=== PATIENT | female | born 1955 | race Caucasian/White ===

== ENCOUNTER 2023-02-05 15:11 | Emergency (ER) | payer MEDICARE, OTHER | END 2023-02-05 16:06 | disposition home or self-care (01) | LOC: LL.ED 15:11 | DX: S42.021A Displaced fracture of shaft of right clavicle, initial encounter for closed fracture (principal); X58.XXXA Exposure to other specified factors, initial encounter | CPT/HCPCS: 73030-RT; 99283 ==

== ENCOUNTER 2024-06-25 14:37 | Emergency (ER) | payer MEDICARE, OTHER ==
[2024-06-25] MEDS: Diphtheria,Pertussis(Acell),Tetanus Vaccine 0.5 ML Syringe IM ONE (14:59)
[2024-06-25 15:14] LABS: BASOPHILS ABSOLUTE AUTO 0.02 K/uL (0.00-0.20); BASOPHILS PERCENT AUTO 0.2 % (0.0-2.0); EOSINOPHILS ABSOLUTE AUTO 0.03 K/uL (0.00-0.50); EOSINOPHILS PERCENT AUTO 0.3 % (0.0-5.0); HEMATOCRIT 40.8 % (34.0-46.0); HEMOGLOBIN 13.5 g/dL (11.7-15.5); LYMPHOCYTES ABSOLUTE AUTO 1.25 K/uL (0.50-3.50); LYMPHOCYTES PERCENT AUTO 11.4 % (10.0-50.0); MEAN CORPUSCULAR HGB CONC 33.1 g/dL (31.7-36.0); MEAN CORPUSCULAR VOLUME 96.7 fL (84.0-98.0); MONOCYTES ABSOLUTE AUTO 0.79 K/uL (0.00-1.00); MONOCYTES PERCENT AUTO 7.2 % (2.0-14.0); NEUTROPHILS ABSOLUTE AUTO 8.89 K/uL (1.40-7.00); NEUTROPHILS PERCENT AUTO 80.9 % (45.0-80.0); PLATELET COUNT,PLT 263 K/uL (150-350); RED BLOOD CELL COUNT 4.22 M/uL (3.77-5.09); RED CELL DISTRIBUTION WIDTH 13.2 % (11.2-14.1)
[2024-06-25 15:24] LABS: ALANINE AMINOTRANSFERASE,ALT 43 U/L (12-78); ALBUMIN 3.5 g/dL (3.4-5.0); ALKALINE PHOSPHATASE 67 IU/L (46-116); ANION GAP 8.1 meq/L (7-15); ASPARTATE AMNIOTRANSFERASE,AST 33 U/L (15-37); BILIRUBIN TOTAL 0.5 mg/dL (0.2-1.0); BLOOD UREA NITROGEN,BUN 11 mg/dL (7-18); CALCIUM 8.8 mg/dL (8.5-10.1); CARBON DIOXIDE,CO2 26.9 mmol/L (21.0-32.0); CHLORIDE,CL 106 mmol/L (98-107); CREATININE 0.99 mg/dL (0.51-1.17); GLUCOSE RANDOM 97 mg/dL (70-99); LIPASE 35 U/L (16-77); MAGNESIUM 1.5 mg/dL (1.8-2.4); POTASSIUM,K 3.7 mmol/L (3.5-5.1); PROTEIN TOTAL,TP 6.7 g/dL (6.4-8.2); SODIUM,NA 141 mmol/L (136-145)
[2024-06-25 15:26] LABS: ESTIMATED GFR 63 mL/min (>=60)
[2024-06-25] MEDS: Bacitracin Oint 1 GM U/D Packet TOP ONE (15:38)
[2024-06-25] MEDS: Bacitracin Oint 1 GM U/D Packet ONE (15:38)
[2024-06-25] MEDS: Acetaminophen 325 MG Tab PO ONE (17:05)
[2024-06-25] MEDS: Ondansetron 4 MG Tab.DIS PO ONE (17:06)
[2024-06-25] MEDS: traMADol 50 MG Tab PO ONE (17:06)
== END 2024-06-25 17:38 ==
LOC: LL.ED 14:37
DX: S72.011A Unspecified intracapsular fracture of right femur, initial encounter for closed fracture (principal); S60.512A Abrasion of left hand, initial encounter; J44.9 Chronic obstructive pulmonary disease, unspecified; E83.42 Hypomagnesemia; Z23 Encounter for immunization; Z79.899 Other long term (current) drug therapy; W17.89XA Other fall from one level to another, initial encounter
CPT/HCPCS: 36415; 80053; 83605; 83690; 83735; 85025; 90471; 90715; 93005; 93010; 99284; A9270-GY

== ENCOUNTER 2024-06-30 10:29 | Inpatient (IN) | payer MEDICARE, OTHER ==
[2024-06-30] MEDS: Iopamidol 755 Mg/ML 100 ML Bottle IVPUSH STA (11:09)
[2024-06-30 11:19] LABS: BASOPHILS ABSOLUTE AUTO 0.01 K/uL (0.00-0.20); BASOPHILS PERCENT AUTO 0.1 % (0.0-2.0); EOSINOPHILS ABSOLUTE AUTO 0.01 K/uL (0.00-0.50); EOSINOPHILS PERCENT AUTO 0.1 % (0.0-5.0); HEMATOCRIT 30.3 % (34.0-46.0); HEMOGLOBIN 9.8 g/dL (11.7-15.5); LYMPHOCYTES ABSOLUTE AUTO 0.43 K/uL (0.50-3.50); LYMPHOCYTES PERCENT AUTO 5.8 % (10.0-50.0); MEAN CORPUSCULAR HEMOGLOBIN 31.8 pg (28.2-33.3); MEAN CORPUSCULAR HGB CONC 32.3 g/dL (31.7-36.0); MEAN CORPUSCULAR VOLUME 98.4 fL (84.0-98.0); MONOCYTES ABSOLUTE AUTO 1.31 K/uL (0.00-1.00); MONOCYTES PERCENT AUTO 17.6 % (2.0-14.0); NEUTROPHILS ABSOLUTE AUTO 5.69 K/uL (1.40-7.00); NEUTROPHILS PERCENT AUTO 76.4 % (45.0-80.0); PLATELET COUNT,PLT 258 K/uL (150-350); RED BLOOD CELL COUNT 3.08 M/uL (3.77-5.09); RED CELL DISTRIBUTION WIDTH 12.8 % (11.2-14.1); WHITE BLOOD CELL COUNT,WBC 7.5 K/uL (4.0-10.2)
[2024-06-30 11:38] LABS: PROTHROMBIN TIME 9.7 SEC (9.0-11.1)
[2024-06-30 11:46] LABS: LACTIC ACID 1.3 mmol/L (0.4-2.0)
[2024-06-30 11:48] LABS: ANION GAP 9.5 meq/L (7-15); BILIRUBIN TOTAL 0.6 mg/dL (0.2-1.0); CARBON DIOXIDE,CO2 29.9 mmol/L (21.0-32.0); CREATININE 0.79 mg/dL (0.51-1.17); EST CRCL DRUG DOSING (CG) 52.99 mL/min; MAGNESIUM 2.2 mg/dL (1.8-2.4); POTASSIUM,K 4.4 mmol/L (3.5-5.1); PROTEIN TOTAL,TP 5.8 g/dL (6.4-8.2)
[2024-06-30] MEDS: Sodium Chloride 0.9% 10 ML Syringe FLUSH PRN (13:14)
[2024-06-30] MEDS: cefTRIAXone 2 GM Vial IVPUSH ONE (13:15)
[2024-06-30] MEDS: Doxycycline Monohydrate 100 MG Cap PO SCH (13:15)
[2024-06-30] MEDS: Sodium Chloride 3% 500 ML IV SCH (13:22)
[2024-06-30] MEDS ORDERED: Morphine 2 MG/ML SYRINGE IVPUSH PRN (14:00)
[2024-06-30] MEDS ORDERED: Ondansetron 4 MG/2 ML SDV IVPUSH PRN (14:05)
[2024-06-30] MEDS ORDERED: oxyCODONE 5 MG Tab PO PRN (16:00)
[2024-06-30] MEDS: Acetaminophen 325 MG Tab PO PRN (16:32)
[2024-06-30 16:33] LABS: CALCIUM 8.5 mg/dL (8.5-10.1); CARBON DIOXIDE,CO2 30.4 mmol/L (21.0-32.0); CREATININE 0.69 mg/dL (0.51-1.17); EST CRCL DRUG DOSING (CG) 60.62 mL/min; POTASSIUM,K 4.6 mmol/L (3.5-5.1)
[2024-06-30 16:38] LABS: ANION GAP 11.2 meq/L (7-15)
[2024-06-30 19:04] LABS: BASOPHILS ABSOLUTE AUTO 0.01 K/uL (0.00-0.20); BASOPHILS PERCENT AUTO 0.1 % (0.0-2.0); EOSINOPHILS ABSOLUTE AUTO 0.01 K/uL (0.00-0.50); EOSINOPHILS PERCENT AUTO 0.1 % (0.0-5.0); HEMOGLOBIN 10.8 g/dL (11.7-15.5); LYMPHOCYTES PERCENT AUTO 3.9 % (10.0-50.0); MEAN CORPUSCULAR HEMOGLOBIN 31.7 pg (28.2-33.3); MEAN CORPUSCULAR HGB CONC 32.7 g/dL (31.7-36.0); MEAN CORPUSCULAR VOLUME 96.8 fL (84.0-98.0); MONOCYTES ABSOLUTE AUTO 1.51 K/uL (0.00-1.00); MONOCYTES PERCENT AUTO 14.6 % (2.0-14.0); NEUTROPHILS PERCENT AUTO 81.3 % (45.0-80.0); PLATELET COUNT,PLT 286 K/uL (150-350); RED BLOOD CELL COUNT 3.41 M/uL (3.77-5.09); RED CELL DISTRIBUTION WIDTH 12.9 % (11.2-14.1); WHITE BLOOD CELL COUNT,WBC 10.3 K/uL (4.0-10.2)
[2024-06-30 19:12] LABS: PH VENOUS,POC 7.46 (7.31-7.41)
[2024-06-30 19:13] LABS: HCO3 VENOUS,POC 26 mmol/L (23-28); O2 SATURATION VENOUS,POC 89 %; PCO2 VENOUS,POC 36 mmHg (41-51); PO2 VENOUS,POC 52 mmHg
[2024-07-01 07:31] LABS: BASOPHILS ABSOLUTE AUTO 0.01 K/uL (0.00-0.20); BASOPHILS PERCENT AUTO 0.1 % (0.0-2.0); EOSINOPHILS ABSOLUTE AUTO 0.02 K/uL (0.00-0.50); EOSINOPHILS PERCENT AUTO 0.2 % (0.0-5.0); HEMATOCRIT 32.6 % (34.0-46.0); HEMOGLOBIN 10.6 g/dL (11.7-15.5); LYMPHOCYTES ABSOLUTE AUTO 0.69 K/uL (0.50-3.50); LYMPHOCYTES PERCENT AUTO 6.9 % (10.0-50.0); MEAN CORPUSCULAR HEMOGLOBIN 31.5 pg (28.2-33.3); MEAN CORPUSCULAR HGB CONC 32.5 g/dL (31.7-36.0); MONOCYTES ABSOLUTE AUTO 1.25 K/uL (0.00-1.00); MONOCYTES PERCENT AUTO 12.5 % (2.0-14.0); NEUTROPHILS PERCENT AUTO 80.3 % (45.0-80.0); PLATELET COUNT,PLT 338 K/uL (150-350); RED BLOOD CELL COUNT 3.36 M/uL (3.77-5.09); RED CELL DISTRIBUTION WIDTH 12.8 % (11.2-14.1)
[2024-07-01 07:48] LABS: ALBUMIN 2.1 g/dL (3.4-5.0); BILIRUBIN TOTAL 0.7 mg/dL (0.2-1.0); CARBON DIOXIDE,CO2 31.5 mmol/L (21.0-32.0); CREATININE 0.7 mg/dL (0.51-1.17); EST CRCL DRUG DOSING (CG) 58.08 mL/min; POTASSIUM,K 4.1 mmol/L (3.5-5.1); PROTEIN TOTAL,TP 6.3 g/dL (6.4-8.2)
[2024-07-01 07:53] LABS: ANION GAP 9.6 meq/L (7-15)
[2024-07-01] MEDS: guaiFENesin 600 MG Tab.ER PO SCH (11:19)
[2024-07-01] MEDS: cefTRIAXone 2 GM Vial IVPUSH SCH (13:29)
[2024-07-01] MEDS: Furosemide 20 MG/2 ML VIAL IVPUSH ONE (16:07)
[2024-07-02 07:09] LABS: BASOPHILS ABSOLUTE AUTO 0.01 K/uL (0.00-0.20); BASOPHILS PERCENT AUTO 0.1 % (0.0-2.0); EOSINOPHILS ABSOLUTE AUTO 0.08 K/uL (0.00-0.50); EOSINOPHILS PERCENT AUTO 0.8 % (0.0-5.0); HEMATOCRIT 33.2 % (34.0-46.0); LYMPHOCYTES ABSOLUTE AUTO 0.91 K/uL (0.50-3.50); LYMPHOCYTES PERCENT AUTO 8.7 % (10.0-50.0); MEAN CORPUSCULAR HEMOGLOBIN 31.8 pg (28.2-33.3); MEAN CORPUSCULAR HGB CONC 33.1 g/dL (31.7-36.0); MONOCYTES ABSOLUTE AUTO 1.21 K/uL (0.00-1.00); MONOCYTES PERCENT AUTO 11.5 % (2.0-14.0); NEUTROPHILS ABSOLUTE AUTO 8.31 K/uL (1.40-7.00); NEUTROPHILS PERCENT AUTO 78.9 % (45.0-80.0); PLATELET COUNT,PLT 411 K/uL (150-350); RED BLOOD CELL COUNT 3.46 M/uL (3.77-5.09); RED CELL DISTRIBUTION WIDTH 12.9 % (11.2-14.1); WHITE BLOOD CELL COUNT,WBC 10.5 K/uL (4.0-10.2)
[2024-07-06] MEDS ORDERED: Alendronate 70 MG Tab PO SCH (06:30)
== END 2024-07-02 10:23 | disposition home or self-care (01) | DRG 640 ==
LOC: LL.ED 10:29 → LL.MS 14:04
PROVIDERS: ADMIT Physician Assistant; ATTEND Physician Assistant
DX: E87.1 Hypo-osmolality and hyponatremia (principal); J18.9 Pneumonia, unspecified organism; R09.02 Hypoxemia; Z47.1 Aftercare following joint replacement surgery; M81.0 Age-related osteoporosis without current pathological fracture; J44.9 Chronic obstructive pulmonary disease, unspecified; R79.89 Other specified abnormal findings of blood chemistry; Z96.641 Presence of right artificial hip joint; Z79.899 Other long term (current) drug therapy
CPT/HCPCS: 36415; 70450; 71275; 80048; 80053; 82803; 82947; 83605; 83735; 83880; 84484; 85025; 85610; 93005; 96374; 97161-GP; 99285-25; A9270-GY; J0696; J1940; J3490; J7040; Q9967